=== PATIENT | female | born 1940 | race Caucasian/White ===

== ENCOUNTER → 2017-06-25 08:57 | Outpatient (CLI) | payer MEDICARE, BC ==
[2013-11-25 00:49] VITALS: BMI 30.2
[~2017-06-25 08:57] MED LIST: ASPIRIN325 MG PO; ATIVAN0.5 MG PO; CEFTIN250 MG PO; CELEBREX200 MG PO; COZAAR25 MG PO; CYMBALTA20 MG PO; DURAGESIC1 PATCH .7 TD; LEXAPRO10 MG PO; MEPERIDINE HCL50 MG PO; SOMA350 MG PO; SYNTHROID88 MCG PO; ULTRAM50 MG PO
[2017-07-05 08:58] VITALS: BMI 29.1
== END | disposition home or self-care (01) ==
LOC: D.RAD 08:57
DX: M25.562 Pain in left knee (principal)

== ENCOUNTER 2017-07-05 08:25 | Day surgery (SDC) | payer MEDICARE, BC ==
[2017-07-03 11:58] LABS: HEMATOCRIT 42.1 % (36.0-48.0); HEMOGLOBIN 14.4 g/dL (12-16); MCH 29.8 pg (26.0-34.0); MCHC 34.2 g/dL (31.0-37.0); MEAN PLATELET VOLUME 10.9 fL (7.4-10.4); RBC 4.84 10x6/uL (4.00-5.40); RDW 13.1 % (11.5-14.5); WBC 6.1 10x3/uL (4.8-10.8)
[~2017-07-05] VITALS: Ht 157.5 cm; Wt 72.1 kg
--- NOTE | ~2017-07-05 | OP ---
PATIENT NAME: TENZIN MENDEZ MEDICAL RECORD: [id number] :42 LOCATION:[facility] ADMISSION DATE: SURGEON: RADHA COLLAZO MD DATE OF OPERATION: 07/05/2017 PREOPERATIVE DIAGNOSIS: Medial meniscus tear of the left knee. POSTOPERATIVE DIAGNOSIS: Medial meniscus tear of the left knee. PROCEDURE: Arthroscopic partial medial meniscectomy. SURGEON: Radha Collazo MD ANESTHESIA: General. INTRAOPERATIVE COMPLICATIONS: None. 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 OPERATIVE SUMMARY IN DETAIL: After obtaining the appropriate preoperative orthopedic surgery consent as well as anesthetic consultation, evaluation and clearance, the patient was brought to the operating room and placed on the operating table in supine position. After adequate general laryngeal mask was administered, tourniquet was placed about the proximal aspect of the left lower extremity. Left lower extremity was then prepped and draped in routine sterile fashion. The leg was elevated and exsanguinated, tourniquet inflated to 350 mmHg. Routine inferolateral portal was established followed by superomedial portal and inferomedial portal. Diagnostic arthroscopy revealed the above findings. Combination of an arthroscopic meniscotome as well as an arthroscopic resector were utilized to debride the meniscus back to stable meniscal elements. Gentle slight chondroplasty was done. The lateral compartment was pristine. There was a minimal amount of patellofemoral arthrosis. Knee was insufflated with 30 cc of 0.25% Marcaine with epinephrine and 80 mg of Depo-Medrol. Arthroscopy portals were closed in routine interrupted fashion using 4-0 Prolene. Sterile dressings were applied. The patient was awakened, taken to recovery in stable condition. All final needle and sponge counts were correct. TRANSINT:[id number] Voice Confirmation ID: [id number] DOCUMENT ID: [id number] RADHA COLLAZO MD at 1908 CC: [id number] DICTATION DATE: 07/05/17 1314 POOL MANAGER: 07/05/17 1339 DEP SD 07/05/17 [id number] [place] [address]
[~2017-07-05 08:25] MED LIST changes: -MEPERIDINE HCL50 MG PO
[2017-07-05 08:58] VITALS: BP 103/36; Ht 157.5 cm; Wt 72.1 kg
[2017-07-05] MEDS ORDERED: MEPERIDINE HCL50 MG PO (13:12)
== END 2017-07-05 15:30 | disposition home or self-care (01) ==
LOC: D.OPS 08:25 → D.PAN 10:45 → D.OPS 11:00 → D.PAN 11:00 → D.OPS 15:30
PROVIDERS: Anesthesiology
DX: S83.232A Complex tear of medial meniscus, current injury, left knee, initial encounter (principal); Z01.812 Encounter for preprocedural laboratory examination

== ENCOUNTER → 2017-07-19 10:21 | Outpatient (CLI) | payer MEDICARE, BC ==
[2017-07-05 08:58] VITALS: BMI 29.1
[~2017-07-19 10:21] MED LIST changes: +MEPERIDINE HCL50 MG PO
== END | disposition home or self-care (01) ==
LOC: D.US 10:21
DX: R60.0 Localized edema (principal)

== ENCOUNTER → 2018-03-19 15:13 | Outpatient (CLI) | payer MEDICARE, BC ==
[2017-07-05 08:58] VITALS: BMI 29.1
== END | disposition home or self-care (01) ==
LOC: D.CT 15:13
DX: R10.9 Unspecified abdominal pain (principal)

== ENCOUNTER → 2018-04-08 09:10 | Outpatient (CLI) | payer MEDICARE, BC ==
[2017-07-05 08:58] VITALS: BMI 29.1
== END | disposition home or self-care (01) ==
LOC: D.US 09:10
DX: R10.13 Epigastric pain (principal); R13.10 Dysphagia, unspecified; R14.2 Eructation; R11.10 Vomiting, unspecified; Z48.815 Encounter for surgical aftercare following surgery on the digestive system; K31.89 Other diseases of stomach and duodenum